=== PATIENT | female | born 1990 | race Caucasian/White ===

== ENCOUNTER 2023-09-28 00:45 | Emergency (ER) | payer SELFPAY ==
[~2023-09-28] VITALS: Ht 170.2 cm; Wt 70.0 kg
[2023-09-28 01:00] VITALS: O2SAT 100
[2023-09-28 01:05] VITALS: TEMP 97
[2023-09-28 01:16] LABS: BASOPHILS % 1.1 % (0.0-2.0); EOSINOPHILS % 1.2 % (0.0-5.0); HEMOGLOBIN. 13.6 g/dL (12.0-16.0); LYMPHOCYTES % 33.3 % (20.0-50.0); MEAN CORPUSCULAR HEMOGLOBIN 29.2 pg (28.0-32.0); MEAN CORPUSCULAR VOLUME 88.5 fL (81.0-99.0); MONOCYTES % 5.9 % (2.0-8.0); NEUTROPHILS % 58.5 % (40.0-76.0); PLATELET 312 x1000/uL (130-400); RED BLOOD CELL COUNT 4.63 mill/uL (4.2-5.4); RED CELL DISTRIBUTION WIDTH 13.2 % (11.6-14.6); WHITE BLOOD COUNT 8.4 x1000/uL (4.5-11.0)
[2023-09-28 01:35] LABS: ACETAMINOPHEN < 2 ug/mL (10-30); ALANINE AMINOTRANSFERASE 9 IU/L (10-49); ALBUMIN 4.5 g/dL (3.2-4.8); ASPARTATE AMINOTRANSFERASE 14 IU/L (<34); BILIRUBIN TOTAL 0.5 mg/dL (0.1-1.0); CALCIUM 8.6 mg/dL (8.7-10.4); CARBON DIOXIDE 22 mEq/L (21-32); CHLORIDE 107 mEq/L (98-107); CREATININE 0.5 mg/dL (0.6-1.0); ETHANOL BLOOD 376 mg/dL (<10); GLUCOSE 96 mg/dL (70-105); POTASSIUM 3.2 mEq/L (3.5-5.1); PROTEIN TOTAL 7.7 g/dL (6.0-8.3); SODIUM 139 mEq/L (136-145); UREA NITROGEN BLOOD 7 mg/dL (9-23)
[2023-09-28] MEDS: SODIUM CHLORIDE 0.9% 1,000 ML IV ONE (01:37)
[2023-09-28] MEDS: ONDANSETRON HCL 4MG/2ML INJ IV STA (01:37)
[2023-09-28 01:58] LABS: HCG SCREEN NEGATIVE
[2023-09-28] MEDS ORDERED: ONDA4TAB50 MT (05:30)
[2023-09-28 05:50] VITALS: BP 107/70; PULSE 89; RESP 18
== END 2023-09-28 05:50 | disposition home or self-care (01) ==
LOC: EDBD 00:45 → ER 00:45
DX: T51.0X1A Toxic effect of ethanol, accidental (unintentional), initial encounter (principal); R11.2 Nausea with vomiting, unspecified; Y92.89 Other specified places as the place of occurrence of the external cause
CPT/HCPCS: 80053; 80307; 80329; 80320; 84703; 83690; 85025; 36415; 96361; 96374; 99283; J2405; J7030; Z7610; G0480